=== PATIENT | female | born 1990 ===

== ENCOUNTER 2023-12-23 02:52 | Emergency (ER) | payer MEDICAID ==
[2023-12-23] MEDS: ARIPiprazole 10 MG Tab PO ONE (03:08)
== END 2023-12-23 03:11 | disposition home or self-care (01) ==
LOC: MW.ED 02:52
DX: Z76.0 Encounter for issue of repeat prescription (principal); Z75.8 Other problems related to medical facilities and other health care
CPT/HCPCS: 99281; A9270; 99283

== ENCOUNTER 2024-02-06 22:35 | Inpatient (IN) | payer MEDICAID ==
[2024-02-06 22:54] LABS: BASOPHILS ABSOLUTE AUTO 0.04 K/uL (0.00-0.20); BASOPHILS PERCENT AUTO 0.4 % (0.0-1.0); EOSINOPHILS ABSOLUTE AUTO 0.06 K/uL (0.00-0.45); EOSINOPHILS PERCENT AUTO 0.6 % (0.0-6.0); HEMATOCRIT 37.6 % (37.0-47.0); HEMOGLOBIN 12.6 g/dL (12.0-16.0); IMMATURE GRAN ABSOLUTE AUTO 0.02 K/uL (0.00-0.05); IMMATURE GRAN PERCENT AUTO 0.2 % (0.0-0.4); LYMPHOCYTES ABSOLUTE AUTO 2.71 K/uL (1.00-4.80); LYMPHOCYTES PERCENT AUTO 26.3 % (24.0-44.0); MEAN CORPUSCULAR HEMOGLOBIN 29.2 pg (28.0-32.0); MEAN CORPUSCULAR HGB CONC 33.5 g/dL (32.0-36.0); MEAN CORPUSCULAR VOLUME 87.2 fL (83.0-99.0); MEAN PLATELET VOLUME 9.8 fL (9.4-12.3); MONOCYTES ABSOLUTE AUTO 0.64 K/uL (0.00-0.80); MONOCYTES PERCENT AUTO 6.2 % (0.0-8.0); NEUTROPHILS ABSOLUTE AUTO 6.82 K/uL (1.80-7.70); NEUTROPHILS PERCENT AUTO 66.3 % (41.0-71.0); PLATELET COUNT,PLT 313 K/uL (150-400); RED BLOOD CELL COUNT 4.31 M/uL (4.10-5.30); WHITE BLOOD CELL COUNT,WBC 10.29 K/uL (3.9-11.3)
[2024-02-06] MEDS: ARIPiprazole 10 MG Tab PO STA (23:21)
[2024-02-06 23:44] LABS: ACETAMINOPHEN <2.0 ug/mL; ALANINE AMINOTRANSFERASE,ALT 36 IU/L (14-63); ALBUMIN 3.7 g/dL (3.4-5.0); ALKALINE PHOSPHATASE 56 U/L (46-116); ASPARTATE AMNIOTRANSFERASE,AST 44 IU/L (15-37); BILIRUBIN TOTAL 0.5 mg/dL (0.2-1.0); BLOOD UREA NITROGEN,BUN 14 mg/dL (7.0-18.0); CALCIUM 8.6 mg/dL (8.5-10.1); CARBON DIOXIDE,CO2 23.2 mmol/L (21.0-32.0); CHLORIDE,CL 106 mmol/L (98-107); CREATININE 0.9 mg/dL (0.6-1.0); ETHANOL BLOOD MEDICAL <3 mg/dL; GLUCOSE RANDOM 173 mg/dL (74-106); POTASSIUM,K 3.8 mmol/L (3.5-5.1); PROTEIN TOTAL,TP 7.4 g/dL (6.4-8.2); SODIUM,NA 141 mmol/L (136-145); TSH ULTRASENSITIVE 1.24 uIU/mL (0.36-3.74)
[2024-02-06 23:46] LABS: ESTIMATED GFR 86 mL/min (>60)
[2024-02-07 00:05] LABS: APPEARANCE,URINE CLEAR; BILIRUBIN,URINE NEGATIVE (NEGATIVE); COLOR,URINE YELLOW; GLUCOSE,URINE NEGATIVE (NEGATIVE); KETONES,URINE NEGATIVE (NEGATIVE); LEUKOCYTE ESTERASE,URINE NEGATIVE (NEGATIVE); NITRITE,URINE NEGATIVE (NEGATIVE); OCCULT BLOOD,URINE NEGATIVE (NEGATIVE); PH,URINE 5.5 (5.0-8.0); PROTEIN,URINE 100 mg/dL (NEGATIVE); UROBILINOGEN,URINE 0.2 EU/dL (<2.0)
[2024-02-07 00:12] LABS: BACTERIA,URINE 3+ (NEGATIVE); EPITHELIAL CELLS,URINE FEW (NONE-FEW); HYALINE CASTS,URINE 0-1 (0-2/LPF); MUCUS,URINE MODERATE (NONE-MOD); RBC,URINE 0-2 (0-2/HPF); WBC,URINE 0-2 (0-5/HPF)
[2024-02-07 00:23] LABS: AMPHETAMINES SCREEN, URINE NEGATIVE (CUTOFF=500); BARBITURATE SCREEN,URINE NEGATIVE (CUTOFF=200); BENZODIAZEPINES SCREEN,URINE NEGATIVE (CUTOFF=150); BUPRENORPHINE SCREEN,URINE NEGATIVE (CUTOFF=10); METHADONE SCREEN, URINE NEGATIVE (CUTOFF=200); METHAMPHETAMINES SCREEN, URINE NEGATIVE (CUTOFF=500); OXYCODONE SCREEN,URINE NEGATIVE (CUT0FF=100); PCP SCREEN,URINE NEGATIVE (CUTOFF=25); THC SCREEN,URINE 20 NG/ML NEGATIVE (CUTOFF=50)
[2024-02-08] MEDS ORDERED: Docusate Sodium 100 MG Cap PO PRN (13:32)
[2024-02-08] MEDS ORDERED: Acetaminophen 325 MG Tab PO PRN (13:32)
[2024-02-08] MEDS ORDERED: Ondansetron 4 MG Tab.DIS PO PRN (13:32)
[2024-02-08] MEDS: QUEtiapine 25 MG Tab PO ONE (17:06)
[2024-02-08] MEDS: QUEtiapine 25 MG Tab PO SCH (21:06)
[2024-02-08] MEDS: Folic Acid 1 MG Tab PO SCH (21:06)
[2024-02-08] MEDS: Thiamine 100 MG Tab PO SCH (21:06)
[2024-02-09] MEDS: Vitamin B6-pyridOXINE 50 MG Tab PO SCH (08:21)
[2024-02-09] MEDS: Cholecalciferol (Vitamin D3) 25 MCG Tab PO SCH (08:22)
[2024-02-09] MEDS: Cyanocobalamin (Vitamin B12) 500 MCG Tab PO SCH (08:22)
== END 2024-02-11 09:25 | DRG 885 ==
LOC: MW.ED 22:35 → MW.MS 02-08 11:31
PROVIDERS: ADMIT Internal Medicine; ATTEND Internal Medicine
DX: F22 Delusional disorders (principal); U07.1 COVID-19; F32.A Depression, unspecified; F41.9 Anxiety disorder, unspecified; Z79.899 Other long term (current) drug therapy
CPT/HCPCS: 36415; 80053; 80143; 80179; 80305-QW; 80307; 81001; 84443; 84703; 85025; 99285; A9270-GY; U0002